=== PATIENT | male | born 1955 | race Caucasian/White ===

== ENCOUNTER 2025-09-12 10:49 | Emergency (ER) | payer OTHER, MEDICAID ==
[~2025-09-12] VITALS: Ht 172.7 cm; Wt 57.2 kg
[2025-09-12] MEDS ORDERED: PANTOPRAZOLE 40 MG VIAL ONE (11:20)
[2025-09-12] MEDS ORDERED: ONDANSETRON HCL/PF 4 MG/2 ML VIAL ONE (11:21)
[2025-09-12 11:25] LABS: PLATELET COUNT (AUTO) 316 K/uL (150-450); RED BLOOD CELL COUNT(AUTO) 4.82 MIL/uL (4.5-6.0); RED CELL DISTRIBUTION WIDTH 14.0 % (11.5-15.0); WHITE BLOOD COUNT (AUTO) 12.8 K/uL (4.3-11.0)
[2025-09-12 11:33] LABS: CALCIUM, SERUM 9.1 mg/dL (8.5-10.1); CREATININE 1.8 mg/dL (0.6-1.3); SODIUM SERUM 133.0 mmol/L (136-145); UREA NITROGEN, BLOOD 29.0 mg/dL (7-18)
[2025-09-12 11:39] LABS: TOTAL PROTEIN, SERUM 8.8 g/dL (6.4-8.2)
[2025-09-12] MEDS: IV NS 0.9% 1,000 ML BAG IV ONE (11:50)
[2025-09-12] MEDS: ONDANSETRON HCL/PF 4 MG/2 ML VIAL IVP ONE (11:51)
[2025-09-12] MEDS: PANTOPRAZOLE 40 MG VIAL IV ONE (11:51)
[2025-09-12 12:05] LABS: ASPARTATE AMINOTRANSFERASE 206.0 U/L (15-37)
[2025-09-12] MEDS ORDERED: ONDA4TAB5 PO (12:35)
[2025-09-12] MEDS ORDERED: PANT20TA2 PO (12:35)
[2025-09-12 13:30] VITALS: BP 126/84; TEMP 98.2; O2SAT 97
== END 2025-09-12 13:31 | disposition home or self-care (01) ==
LOC: ER 11:04
DX: R10.13 Epigastric pain (principal); R11.2 Nausea with vomiting, unspecified; K92.2 Gastrointestinal hemorrhage, unspecified
CPT/HCPCS: 99285; 74176; 96374; 71045; 96375; 93005; 85025; 80048; 83690; 80076; 36415; J2405; J7030; J2470